=== PATIENT | male | born 1945 | race Caucasian/White ===

== ENCOUNTER 2019-12-01 08:24 | Outpatient (CLI) | payer MEDICARE, SELFPAY ==
--- NOTE | ~2019-12-01 | CT_ITS ---
EXAMINATION: CT UE LT wo con DATE: 12/01/2019 09:18 INDICATION: Left upper arm mass. TECHNIQUE: Computed tomography (CT) of the left humerus was performed without intravenous contrast. A utomated exposure control and iterative reconstruction technique were employed. The dose-length produ ct was 2186.02 mGy-cm. COMPARISON: None FINDINGS: Bone alignment is normal. No fracture. 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 The musculature is normal. There is no abnorma l mass. IMPRESSION: 1. No abnormal mass. Reviewed, dictated and finalized at location A. IMPRESSION: 1. No abnormal mass.
== END 2019-12-01 08:25 | disposition home or self-care (01) ==
LOC: CHSIMG 08:32
PROVIDERS: PCP Family Medicine; Visit Provider Family Medicine
DX: M62.89 Other specified disorders of muscle (principal)
CPT/HCPCS: 73200

== ENCOUNTER 2024-01-21 06:27 | Emergency (ER) | payer MEDICARE, SELFPAY ==
[2024-01-21 06:36] VITALS: BP 130/67; PULSE 72; RESP 18; TEMP 36.9; O2SAT 95
--- NOTE | 2024-01-21 06:43 | ED.EPISTAXIS ---
HPI - Epistaxis General Chief complaint: Epistaxis Stated complaint: Nose Bleed Source: patient Mode of arrival: ambulatory Limitations: no limitations History of Present Illness HPI Narrative: patient is a 78-year-old male with a left nose bleed and he is on Coumadin. He has been having a bleeding problem for the last few hours. MD complaint: epistaxis Location: left nostril Onset (ago): hour(s) (3) Duration: constant Context: history of previous and warfarin use Associated symptoms: sinus pain Treatment prior to arrival: nose pinching, head tilted back, head leaned forward, stuffed nose with tissue and nasal clamp Related Data Home Medications Medication Instructions Recorded Confirmed amlodipine 5 mg tablet 5 mg PO DAILY 01/21/24 01/21/24 atorvastatin 40 mg tablet 40 mg PO DAILY 01/21/24 01/21/24 warfarin 1 mg tablet 1 mg PO DAILY 01/21/24 01/21/24 Allergies Allergy/AdvReac Type Severity Reaction Status Date / Time Penicillins Allergy Anaphylactic Verified 01/21/24 06:33 Shock Review of Systems Review of Systems: All systems reviewed & are unremarkable except as noted in HPI and below Constitutional: Constitutional: Reports no additional constitutional complaints Eyes: Eyes: Reports no additional eye complaints ENT: Reports system reviewed and no additional complaints, except as documented Cardiovascular: Cardiovascular: Reports no additional cardiovascular complaints Respiratory: Respiratory: Reports no additional respiratory complaints Gastrointestinal: Gastrointestinal: Reports no additional gastrointestinal complaints Genitourinary: Genitourinary: Reports no additional male genitourinary complaints Musculoskeletal: Musculoskeletal: Reports no additional musculoskeletal complaints Integumentary/Breasts: Skin/Breast: Reports system reviewed and no additional complaints, except as docu Neurologic: Reports system reviewed and no additional complaints, except as documented Psychiatric: Psychiatric: Reports no additional psychiatric complaints Endocrine: Endocrine: Reports no additional endocrine complaints Hematologic/Lymphatic: Hematologic/Lymphatic: Reports no additional hematologic/lymphatic complaints Allergic/Immunologic: Allergic/Immunologic: Reports no additional allergic/immunologic complaints Exam Const: General: healthy appearing Nutritional Appearance: well nourished Orientation/consciousness: patient oriented x3 HENMT: Head: normal to inspection Ears: external ears normal Face/Nose/Sinus: Normal external nose present Other: Left nare is bleeding briskly with bright red blood and appears to be coming from the anterior midline wall; we blew out a blood clot and placed a rhino rocket Eyes: Conjunctivae: conjunctivae normal Pupils: Equal, round and reactive pupils present EOM: EOMs intact bilaterally Neck: Neck: normal visual inspection Chest: Chest palpation & inspection: normal inspection of the chest Resp: Effort & Inspection: normal respiratory effort and not labored Auscultation: clear to auscultation bilaterally Cardio: Rate: regular rate Rhythm: regular rhythm Heart sounds: no murmurs GI: Inspection: non-distended GI Palp: Yes Soft to palpation and No Tenderness to palpation present (GI) Auscultation: normal bowel sounds : General: Yes bladder normal to palpation Back/Spine/Pelvis: Back: no CVA tenderness Skin: General skin exam: normal color Rashes: no rashes Wounds: no wounds Neuro: General: patient oriented x3 Cranial nerves: Yes Nystagmus not present Speech: normal speech Extrem: General: normal to inspection Psych: Mental Status: mental status grossly normal Affect: normal affect Attitude: cooperative Course Vital Signs Vital signs: Vital Signs Temperature 36.9 C 01/21/24 06:36 Pulse Rate 72 01/21/24 06:36 Respiratory Rate 18 01/21/24 06:36 Blood Pressure 130/67 01/21/24 06:36 Pulse Oximetry 95 01/21/24
[2024-01-21 06:48] LABS: Basophils Absolute Auto 0.07 K/mm3 (0.00-0.10); Basophils Percent Auto 0.9 % (0.0-1.0); Eosinophils Absolute Auto 0.15 K/mm3 (0.02-0.50); Eosinophils Percent Auto 1.9 % (1.0-6.0); Hematocrit 47.7 % (37.0-46.0); Immature Granulocyte Absolute 0.03 K/mm3 (0.00-0.00); Immature Granulocyte Percent A 0.4 % (0.0-0.0); Lymphocytes Absolute Auto 1.31 K/mm3 (1.10-4.50); Lymphocytes Percent Auto 16.3 % (18.0-42.0); Mean Corpuscular HGB Conc 33.5 g/dL (32-36); Mean Corpuscular Hemoglobin 30.1 pg (27.0-31.0); Mean Corpuscular Volume 89.7 fL (78.0-102.0); Mean Platelet Volume 9.9 fl (8.7-11.0); Monocytes Absolute Auto 0.79 K/mm3 (0.10-0.90); Monocytes Percent Auto 9.8 % (2.0-11.0); Neutrophils Absolute Auto 5.69 K/mm3 (1.70-7.20); Neutrophils Percent Auto 70.7 % (50.0-70.0); Platelet Count Result 194 K/mm3 (150-420); Red Blood Count 5.32 M/mm3 (4.70-6.10)
[2024-01-21 07:02] LABS: INR 2.7; Partial Thromboplastin Time 36.9 Sec (23.9-30.70); Prothrombin Time 27.5 Seconds (9.50-12.1)
--- NOTE | 2024-01-21 07:11 | PC.NURSE ---
DR Garber NOTIFIED THAT L NARE BLEEDING AROUND RHINO-ROCKET. MORE AIR ADDED, NO FURTHER NASAL BLEEDING SEEN AT THIS TIME.
== END 2024-01-21 07:50 | disposition home or self-care (01) ==
LOC: CHSED 07:18
PROVIDERS: Emergency Provider Emergency Medicine; PCP Family Medicine
DX: R04.0 Epistaxis (principal); Z79.01 Long term (current) use of anticoagulants
CPT/HCPCS: 30901; 36415; 85025; 85610; 85730; 99283

== ENCOUNTER 2025-01-22 19:55 | Outpatient (CLI) | payer MEDICARE, SELFPAY ==
--- OUTSIDE RECORDS SUMMARY | 2025-01-22 19:59 | XMS_ITS | Clinical Summary ---
Author Organization [facility] Address [address] [place] [address] Care Team Providers Care Vp Strategic Partnerships Name Role Phone Alfred Cuadra MD Primary Care Provider Sandor Peralta MD Unavailable [phone] Kiran Vega MD Unavailable Allergies Active Allergy Reactions Criticality Noted Date Comments Penicillins Unknown 12/19/2021 Pollen Extract Eyes Water & Itch 01/13/2020 Medications aspirin 81 MG chewable tablet Chew 1 tablet (81 mg total) by mouth daily. 4 Active atorvastatin 40 MG tablet Take 1 tablet (40 mg total) by mouth daily. 1 9 Active nitroglycerin (NITROSTAT) 0.[address] 1 tablet (0.4 mg total) under the tongue every 5 (five) minutes as needed for Chest Pain. 25 tablet 1 3 Active warfarin (COUMADIN) 5 MG tablet Take 1 tablet (5 mg total) by mouth daily. 3 Active spironolactone (ALDACTONE) 25 MG tablet Take 1 tablet (25 mg total) by mouth daily. 90 tablet 3 5 Active amLODIPine (NORVASC) 5 MG tablet TAKE 1 TABLET (5 MG TOTAL) BY MOUTH DAILY. 90 tablet 2 5 Active amLODIPine (NORVASC) 5 MG tablet Take 1 tablet (5 mg total) by mouth daily. 90 tablet 2 4 01/21/20 25 Discontinued Active Problems Problem Noted Date Diagnosed Date S/P ablation of atrial flutter 12/07/2023 AVB (atrioventricular block) 10/21/2023 Nonrheumatic aortic valve stenosis 04/13/2023 Lumbar radiculopathy 03/14/2023 Overview (03/14/2023): Added automatically from request for surgery [id number] Cardiac pacemaker 06/19/2019 Overview (06/19/2019): [facility]ta assurity mri 2272 - [id number] Dc-pm Mar 05, 2019 [facility]ta tendril sts 2088tc-52 - [id number] At lead Mar 05, 2019 [facility] balta tendril sts 2088tc - 58 - [id number] Vent lead Feb Atrial flutter ([facility]) 01/28/2019 Bradycardia 01/28/2019 Warfarin anticoagulation 01/21/2019 S/P CABG (coronary artery bypass graft) 01/15/20 CAD (coronary artery disease) 12/12/2017 Sleep apnea 12/12/2017 Essential hypertension 01/03/2017 Hyperlipidemia 01/03/2017 Heart palpitations 01/03/2017 VT (ventricular tachycardia) ([facility]) Resolved Problems Problem Noted Date Diagnosed Date Resolved Date Preop cardiovascular exam 07/09/2020 Encounters Date Type Department Care Team Description 01/07/2025 1:30 PM CDT Office Visit [facility] [place] [address] Kiran Vega MD Heart Problem 01/07/2025 1:06 PM CDT - 01/07/2025 11:59 PM CDT Hospital Encounter [facility] [place] [address] Kiran Vega MD Discharge Disposition: Home or Self Care (Routine Discharge) 01/07[facility]2025 [facility] [address] [place] [address] Kiran Vega MD Schedule Test 01/07/2025 Travel 01/06/2025 [facility] [address] [place] [address] Kiran Vega MD Appointment Reminder 01/06/2025 Telephone [facility] [address] [place] [address] Kiran Vega MD Results 01/05/2025 Travel 01/04/2025 9:41 AM CDT - 01/04/2025 11:59 PM CDT Hospital Encounter [place] [address] [facility] [place] [address] Kiran Vega MD Discharge Disposition: Home or Self Care (Routine Discharge) 01/04/2025 Travel 01/03/2025 Orders Only [facility] [address] [place] [address] Kiran Vega MD 12/22/2024 Telephone [facility] [address] [place] [address] Sandor Peralta MD Schedule Test 12/20/2024 1:45 PM CDT Office Visit [facility] [address] [place] [address] Sandor Peralta MD Follow Up 12/20/2024 1:15 PM CDT Allied Health/Nurse Visit [facility] [address] [place] [address] Sandor Peralta MD In Clinic Device Check 12/20/2024 Travel 12/16/2024 Telephone [facility] [address] [facility] [place] [address] Kiran Vega MD Appointment Reminder 12/10/2024 Orders Only [facility] [address] [place] [address] Kiran Vega MD 12/10/2024 Orders Only [facility] [address] [place] [address] Kiran Vega MD 11/01/2024 Telephone [facility] [address] [place] [facility] [address] Kiran Vega MD Refill Request from Last 3 Months Immunizations Immunization Administration Dates Next Due Influenza Adult (Generic) 07/09/2021 Pneumococcal (Prevnar 13) 09/22/2016,08/05/2016 Family History Medical History Relation Comments Coronary artery disease Father Heart Attack Father Relation Status Comments Father (Age 61) Maternal Grandfather Maternal Grandmother Mother Paternal Grandfather Paternal Grandmother Social History Tobacco Use Types Packs/Day Years Used Date Smoking Tobacco: Former Cigarettes Q uit: 2012 Smokeless Tobacco: Never Tobacco Cessation:Counseling Given: Not Answered Alcohol Use Standard Drinks/Week Comments Yes 3.3 (1 standard drink = 0.6 oz p ure alcohol) 6 pack a month PHQ-2 Answer Date Recorded PHQ-2 Score - If the patient scores above 3, please move on to questions 3-9 0 12/06/2021 Sex and Gender Information Value Date Recorded Sex Assigned at Male 01/05/2025 7:29 AM CDT Legal Sex Male 1:42 AM CDT Gender Identity Not on file Sexual Orientation Not on file Occupation Industry Job Start Date Job End Date Retired. Not on file Not on file Not on file Last Filed Vital Signs Vital Sign Reading Time Taken Comments Blood Pressure 131/73 01/07/2025 1:28 PM CDT Pulse 79 01/07/2025 1:28 PM CDT Temperature 36.3 C (97.4 F) 04/04/2023 1:22 PM CDT Respiratory Rate 20 01/07/2025 1:28 PM CDT Oxygen Saturation 97% 01/07/2025 1:28 PM CDT Inhaled Oxygen Concentration - - Weight 113.7 kg (250 lb 9.6 oz) 01/07/2025 1:28 PM CDT Height 182.9 cm (6') 01/07/2025 1:28 PM CDT Body Mass Index 33.99 01/07/2025 1:28 PM CDT Plan of Treatment Upcoming Encounters Date Type Department Care Team (Latest Contact Info) Description 02/11/2025 7:30 AM CDT Appointment [facility] [facility] [place] [address] Kiran Vega MD [address] [place] [address] 02/11/2025 8:15 AM CDT Appointment [facility] [address] [place] [address] [place] [address] Kiran Vega MD [address] [place] [address] 02/11/2025 8:30 AM CDT Appointment [facility] [address] [place] [address] [place] [address] Kiran Vega MD [address] [place] [address] [place] [address] [address] [place] [address] 02/11/2025 9:45 AM CDT Appointment [facility] [address] [place], [place] [address] [address] Kiran Vega MD [address] [place] [address] 03/23/2025 2:30 AM CDT Allied Health/Nurse Visit [facility] [address] [place] [address] Sandor Peralta MD [address] [place] [address] 12/28/2025 1:00 PM CDT Appointment [facility] [address] [place], [place] [address] [address] Kiran Vega MD [address] [place] [address] 01/06/2026 10:00 AM CDT Appointment [facility] [address] [place] [address] Kiran Vega MD [address] [place] [address] 01/06/2026 11:00 AM CDT Appointment [facility] [address] [place] [address] Kiran Vega MD [address] [place] [address] 01/16/2026 11:00 AM CDT [facility] [address] [place] [address] Kiran Vega MD [address] [place] [address] 01/20/2026 10:[address] [place] [address] Kiran Vega MD [address] [place] [address] Health Maintenance Due Date Last Done Comments ASCVD Statin 1945 Hepatitis C 1964 DTaP, Tdap and Td Vaccines ( 1 - Tdap) 1965 Zoster Vaccines (1 of 2) 1996 Annual Medicare Wellness Visit 2011 ASCVD LDL 05/12/2016 05/12/2015 Pneumococcal Vaccine: 50+ Years (2 of 2 - PPSV23) 11/17/2016 09/22/2016, 08/05/2016 RSV Immunization or 60+ Years (1 - 1-dose 75+ series) 2021 COVID-19 Vaccine (2023-2 5 season) 2024 Meningococcal B Vaccine Aged Out No l onger eligible based on patient's age to complete this topic Meningococcal Vaccine Aged Out No libia bulmaro eligible based on patient's age to complete this topic RSV Immunizations Under 20 Months Aged Out No longer eligible b ased on patient's age to complete this topic Medical Devices Implanted Type Area [employer] Lead Device Identifier Shelf Expiration Date Model / Serial / Lot [facility] Rv Dc Ppm Lead- 9 Implanted:Qty : 1 on 03/05/2019 by Sandor Peralta MD Lead Implant [facility] [employer] [facility] - DIV [facility]TA 01/19/20228TC-58 / [id number] / [facility] Ra Lead- 9 Implanted:Qty : 1 on 03/05/2019 by Sandor Peralta MD Lead Implant [facility] [facility] - DIV [facility] 01/19/20228TC-52 / [id number] / [facility]ta Dc Pacemaker-02/20 Implanted:Qty : 1 on 03/05/2019 by Sandor Peralta MD Pacemaker [facility] DIV [facility] 08/21/2020 [id number] / [id number] / Procedures Procedure Name Priority Date/Time Associated Diagnosis Comments ECG 12-LEAD Routine 01/07/2025 1:17 PM CDT Essential hypertension USV AORTA ILIAC IVC DUPLEX COMP Routine 01/04/2025 11:44 AM CDT Abdominal aortic aneurysm (AAA) Infrarenal abdominal aortic aneurysm (AAA) without rupture USE ECHOCARDIOGRAM W CON Routine 01/04/2025 11:43 AM CDT Nonrheumatic aortic valve stenosis Ascending aorta enlargement LIPID PANEL Routine 05/12/2015 12:00 AM CDT from Last 3 Months or Most Recently Relevant to Health Maintenance Results * ECG 12 lead (HOSPITAL PERFORMED ONLY) (01/07/2025 1:17 PM CDT) 01/07/2025 1:17 PM CDT Narrative [facility] - 01/07/2025 10:05 PM CDT [address] [place] [address] Test Date: 2025-01-07 Pat Name: RICKI MANE Department: 3 Room: Gender: Male Legal File Clerk: : 1945 Requested By: KIRAN VEGA Order Number: [id number] [place] MD: Kiran Vega Measurements Intervals [place] Rate: 69 P: 0 GA: 0 QRS: 96 QRSD: 162 T: -79 QT: 424 QTc: 457 Interpretive Statements ELECTRONIC VENTRICULAR PACEMAKER ABNORMAL RHYTHM ECG Procedure Note Kiran Vega MD - 01/07/[address] [place] [address] Test Date: 2025-01-07 Pat Name: RICKI MANE Department: 3 Room: Gender: Male Legal File Clerk: : 1945 Requested By: KIRAN VEGA Order Number: [id number] [place] MD: Kiran Vega Measurements Intervals [place] Rate: 69 P: 0 GA: 0 QRS: 96 QRSD: 162 T: -79 QT: 424 QTc: 457 Interpretive Statements ELECTRONIC VENTRICULAR PACEMAKER ABNORMAL RHYTHM ECG us Kiran Vega MD ECG ORDERABLES Final Result [facility] * USV AORTA ILIAC IVC DUPLEX COMP (01/04/2025 11:44 AM CDT) Anatomical Region Laterality Modality NA Ultrasound 01/04/2025 9:57 AM CDT Narrative 01/04/2025 5:39 PM CDT Outreach Aortic Scan Pat.Name: Ricki Mane Pat.ID: [id number] .Date: 01/04/2025 Refer.MD: Maximiliano, [facility] Exam Time: 9:57:00 AM Study Type:OUTREACH Aortic Scan Height: 72 in Age: 11 1945,79Y Sex: M Sonogrphr: Am Pat. Stat.:Outpatient Reason for Study:Abdominal aortic aneurysm (AAA), Infrarenal abdominal aortic aneurysm (AAA) without rupture Procedures: Study performed at [place], [place] and interpreted by [facility]. ++++++++++++++++++++++++++++++++++++ SUMMARY: ++++++++++++++++++++++++++++++++++++ AO: No hemodynamically significant stenosis is noted in the abdominal aorta. AO: An abdominal aortic aneurysm noted in the suprarenal aorta measuring 3.2 cm. R Iliac: Ectasia of the proximal common iliac artery noted measuring 1.6 cm. L Iliac: Ectasia of the proximal common iliac artery noted measuring 1.5 cm. ++++++++++++++++++++++++++++++++++++ FINDINGS: ++++++++++++++++++++++++++++++++++++ AO: No hemodynamically significant stenosis is noted in the abdominal aorta. An abdominal aortic aneurysm noted in the suprarenal aorta measuring 3.2 cm. R Iliac: Ectasia of the proximal common iliac artery noted measuring 1.6 cm. L Iliac: Ectasia of the proximal common iliac artery noted measuring 1.5 cm. ++++++++++++++++++++++++++++++++++++ MEASUREMENTS: ++++++++++++++++++++++++++++++++++++ DOPPLER Supra AO Supra AO PSV 47 cm/s Supra AO Dim 2 2.7 cm Supra AO Dim 1 3.2 cm Juxta AO Juxta AO PSV 65 cm/s Juxta AO Dim 2 2.4 cm Juxta AO Dim 1 2.7 cm Infra AO Infra AO PSV 59 cm/s Infra AO Dim 2 2.2 cm Infra AO Dim 1 2.4 cm Rt Prox Common Iliac Common Iliac PS 100 cm/s Common Iliac Di 1.6 cm Common Iliac Di 1.4 cm Lt Prox Common Iliac Common Iliac PS 145 cm/s Common Iliac Di 1.5 cm Common Iliac Di 1.4 cm <Electronic Signature> 01/04/2025 05:39 PM Kiran Vega M.D. Procedure Note Kiran Vega MD - 01/04/2025 Outreach Aortic Scan Pat.Name: Ricki Mane Pat.ID: [id number] .Date: 01/04/2025 [facility]: 9:57:00 AM Study Type:OUTREACH Aortic Scan Height: 72 in Age: 11 1945,79Y Sex: M Sonogrphr: Am Pat. Stat.:Outpatient Reason for Study:Abdominal aortic aneurysm (AAA), Infrarenal abdominal aortic aneurysm (AAA) without rupture Procedures: Study performed at [place], [place] and interpreted by [facility]. ++++++++++++++++++++++++++++++++++++ SUMMARY: ++++++++++++++++++++++++++++++++++++ AO: No hemodynamically significant stenosis is noted in the abdominal aorta. AO: An abdominal aortic aneurysm noted in the suprarenal aorta measuring 3.2 cm. R Iliac: Ectasia of the proximal common iliac artery noted measuring 1.6 cm. L Iliac: Ectasia of the proximal common iliac artery noted measuring 1.5 cm. ++++++++++++++++++++++++++++++++++++ FINDINGS: ++++++++++++++++++++++++++++++++++++ AO: No hemodynamically significant stenosis is noted in the abdominal aorta. An abdominal aortic aneurysm noted in the suprarenal aorta measuring 3.2 cm. R Iliac: Ectasia of the proximal common iliac artery noted measuring 1.6 cm. L Iliac: Ectasia of the proximal common iliac artery noted measuring 1.5 cm. ++++++++++++++++++++++++++++++++++++ MEASUREMENTS: ++++++++++++++++++++++++++++++++++++ DOPPLER Supra AO Supra AO PSV 47 cm/s Supra AO Dim 2 2.7 cm Supra AO Dim 1 3.2 cm Juxta AO Juxta AO PSV 65 cm/s Juxta AO Dim 2 2.4 cm Juxta AO Dim 1 2.7 cm Infra AO Infra AO PSV 59 cm/s Infra AO Dim 2 2.2 cm Infra AO Dim 1 2.4 cm Rt Prox Common Iliac Common Iliac PS 100 cm/s Common Iliac Di 1.6 cm Common Iliac Di 1.4 cm Lt Prox Common Iliac Common Iliac PS 145 cm/s Common Iliac Di 1.5 cm Common Iliac Di 1.4 cm <Electronic Signature> 01/04/2025 05:39 PM Kiran Vega M.D. us Kiran Vega MD VASC Final Result * USE ECHOCARDIOGRAM W CON (01/04/2025 11:43 AM CDT) Anatomical Region Laterality Modality NA Ultrasound 01/04/2025 10:0 7 AM CDT Narrative 01/05/2025 8:15 PM CDT Echocardiography Report Pat.Name: Ricki Mane Pat.ID: [id number] .Date: 01/04/2025 Refer.MD: Maximiliano, [facility] Exam Time: 10:07:00 AM Study Type:[facility] Height: 72 in Weight: 255 lb BSA: 2.36 m2 Age: 11 1945,79Y Sex: M Sonogrphr: Am Pat. Stat.:Outpatient Reason for Study:Nonrheumatic aortic valve stenosis, Proximal ascending aortic enlargement Procedures: Study performed at [facility], [place], [place] and interpreted by [facility]. 2D, M-mode, Doppler, Color Flow, Myocardial contrast was used to enhance endocardial definition. ++++++++++++++++++++++++++++++++++++ SUMMARY: ++++++++++++++++++++++++++++++++++++ The left ventricular size is normal. Estimated left ventricular ejection fraction is 50%. The right ventricular size is mildly enlarged. The right ventricle not adequately visualized in all views. No evidence of pericardial effusion. Inferior vena cava shows >50% collapse with respiration consistent with normal right atrial pressure. Mild to moderate aortic valve stenosis. Trace aortic regurgitation. Moderate calcification of aortic valve leaflets. Dimensionless index of .29. ++++++++++++++++++++++++++++++++++++ FINDINGS: ++++++++++++++++++++++++++++++++++++ LV: The left ventricular size is normal. The left ventricular systolic function is adequate. Estimated left ventricular ejection fraction is 50%. There is no left ventricular hypertrophy. The average E/e' is <14. Left ventricular diastolic function is abnormal. RV: The right ventricular size is mildly enlarged. The right ventricle not adequately visualized in all views. A pacemaker wire is visualized in the right ventricle. LA: The left atrial size is normal. RA: Right atrial size is possibly enlarged. A pacemaker wire is visualized in the right atrium. The right atrium was not well visualized in all views. ÁNGEL: No evidence of pericardial effusion. AO: Aorta not well visualized. PA: Unable to reliably quantitate pulmonary systolic pressure. SVn: Inferior vena cava is normal. Inferior vena cava shows >50% collapse with respiration consistent with normal right atrial pressure. AV: Mild to moderate aortic valve stenosis. The peak velocity across the aortic valve measures 3.0m/sec with a peak gradient of 35mmHg and a mean gradient of 23mmHg. The calculated aortic valve area is 1.0cm2. Trace aortic regurgitation. Moderate calcification of aortic valve leaflets. Dimensionless index of .29. MV: Structurally normal mitral valve. No evidence of significant mitral regurgitation. PV: Pulmonic valve not well visualized. <Electronic Signature> 01/05/2025 08:15 PM Kiran Vega M.D. Procedure Note Kiran Vega MD - 01/06/2025 Echocardiography Report Pat.Name: LakshmiRicki Pat.ID: [id number] .Date: 01/04/2025 Refer.MD: Maximiliano, [facility] Exam Time: 10:07:00 AM Study Type:[facility] Height: 72 in Weight: 255 lb BSA: 2.36 m2 Age: 11 1945,79Y Sex: M Sonogrphr: Devora Santiago. Stat.:Outpatient Reason for Study:Nonrheumatic aortic valve stenosis, Proximal ascending aortic enlargement Procedures: Study performed at [place], [place] and interpreted by [facility]. 2D, M-mode, Doppler, Color Flow, Myocardial contrast was used to enhance endocardial definition. ++++++++++++++++++++++++++++++++++++ SUMMARY: ++++++++++++++++++++++++++++++++++++ The left ventricular size is normal. Estimated left ventricular ejection fraction is 50%. The right ventricular size is mildly enlarged. The right ventricle not adequately visualized in all views. No evidence of pericardial effusion. Inferior vena cava shows >50% collapse with respiration consistent with normal right atrial pressure. Mild to moderate aortic valve stenosis. Trace aortic regurgitation. Moderate calcification of aortic valve leaflets. Dimensionless index of .29. ++++++++++++++++++++++++++++++++++++ FINDINGS: ++++++++++++++++++++++++++++++++++++ LV: The left ventricular size is normal. The left ventricular systolic function is adequate. Estimated left ventricular ejection fraction is 50%. There is no left ventricular hypertrophy. The average E/e' is <14. Left ventricular diastolic function is abnormal. RV: The right ventricular size is mildly enlarged. The right ventricle not adequately visualized in all views. A pacemaker wire is visualized in the right ventricle. LA: The left atrial size is normal. RA: Right atrial size is possibly enlarged. A pacemaker wire is visualized in the right atrium. The right atrium was not well visualized in all views. ÁNGEL: No evidence of pericardial effusion. AO: Aorta not well visualized. PA: Unable to reliably quantitate pulmonary systolic pressure. SVn: Inferior vena cava is normal. Inferior vena cava shows >50% collapse with respiration consistent with normal right atrial pressure. AV: Mild to moderate aortic valve stenosis. The peak velocity across the aortic valve measures 3.0m/sec with a peak gradient of 35mmHg and a mean gradient of 23mmHg. The calculated aortic valve area is 1.0cm2. Trace aortic regurgitation. Moderate calcification of aortic valve leaflets. Dimensionless index of .29. MV: Structurally normal mitral valve. No evidence of significant mitral regurgitation. PV: Pulmonic valve not well visualized. <Electronic Signature> 01/05/2025 08:15 PM Kiran Vega M.D. Kiran Vega MD ECHO Final Result * LIPID PANEL (05/12/2015 12:00 AM CDT) TRIGLYCERIDES 164 0 - 150 mg/dl MEDINFORMATIX TO EPIC CONVERSION CHOLESTEROL 147 0 - 200 mg/dl MEDINFORMATIX TO EPIC CONVERSION HDL 40 40 - 59 mg/dl MEDINFORMATIX TO EPIC CONVERSION LDL CONVERSION 74 0 - 100 mg/dl MEDINFORMATIX TO EPIC CONVERSION CHOL/HDL RATIO 3.7 <4.0 (Calc) MEDINFORMATIX TO EPIC CONVERSION LDL/HDL 1.9 <3.0 Calc MEDINFORMA TIX TO EPIC CONVERSION 05/12/2015 05/12/2015 Narrative MEDINFORMATIX TO EPIC CONVERSION - 05/15/2015 3:23 PM CDT Reviewed by VIKKI May 15 2015 3:28:14:000PM us Generic Conversion Md [facility] Final R esult MEDINFORMATIX TO EPIC CONVERSION from Last 3 Months or Most Recently Relevant to Health Maintenance Insurance MEDICARE [facility] MEDICARE Advance Directives * Full Code (Latest Code Status on File) Date Activated Date Inactivated Comments 06/30/2019 4:13 PM 06/30/2019 8:11 PM * Full Code Date Activated Date Inactivated Comments 03/05/2019 6:21 PM 03/06/2019 2:40 PM Care Teams Vp [employer] Partnerships Relationship Specialty Start Date End Date Alfred Cuadra MD [address] [place] [id number] PCP - General FAMILY PRACTICE 01/22/19 Sandor Peralta MD [address] [place] [address] [employer] Operator CLINICAL CARDIAC ELECTROPHYSIOLOGY 06/14/19 Kiran Vega MD [address] [place] [address] Consulting Physician CARDIOVASCULAR DISEASE 01/15/24
--- OUTSIDE RECORDS SUMMARY | 2025-01-22 19:59 | XMS_ITS | Encounter Summary ---
Author Organization [facility] Address [facility] [place] [address] Care Team Providers Care Cartographic Engineer Name Role Phone Ayad Cronin MD Unavailable [phone] Kishore Gunter MD Unavailable Alfred Cuadra MD Primary Care Provider [phone] Sandor Peralta MD Unavailable [phone] Silvina Cox MD Unavailable Encounter Details Date Type Department Care Team (Late st Contact Info) Description 06/01/2015 Abstract [facility] [address] [place] [address] Ayad Cronin MD [address] [place] [address] Social History Tobacco Use Types Packs/Day Years Used Date Smoking Tobacco: Former Alcohol Use Standard Drinks/Week Comments No 0 (1 standard drink = 0.6 oz pur e alcohol) Sex and Gender Information Value Date Recorded Sex Assigned at Male 01/05/2025 7:29 AM CDT Legal Sex Male 1:42 AM CDT Gender Identity Not on file Sexual Orientation Not on file Occupation Industry Job Start Date Job End Date Retired. Not on file Not on file Not on file documented as of this encounter Plan of Treatment Upcoming Encounters Date Type Department Care Team (Latest Contact Info) Description 02/11/2025 7:30 AM CDT Appointment [facility] [address] [place], [place] [address] [address] Silvina Cox MD [address] [place] [address] 02/11/2025 8:15 AM CDT Appointment [facility] [address] [place], [place] [address] [address] Silvina Cox MD [address] [place] [address] 02/11/2025 8:30 AM CDT Appointment [facility] [address] [place], [place] [address] [address] Silvina Cox MD [address] [place] [address] [place] [address] [place] [address] 02/11/2025 9:45 AM CDT [address]ointment [address] [place] [address] Silvina Cox MD [address] [place] [address] 03/23/2025 2:30 AM CDT Allied Health/Nurse Visit [facility] [address] [place] [address] [phone] Sandor Peralta MD [address] [place] [address] 12/28/2025 1:00 PM CDT Appointment [facility] [address] [place], [place] [address] [address] Silvina Cox MD [address] [place] [address] 01/06/2026 10:00 AM CDT Appointment [facility] [address] [place] [address] Silvina Cox MD [address] [place] [address] 01/06/2026 11:00 AM CDT Appointment [facility] [address] [place] [address] Silvina Cox MD [address] [place] [address] 01/16/2026 11:00 AM CDT [facility] [id number] [facility] [place] [phone] Silvina Cox MD [address] [place] [address] 01/20/2026 10:[address] [facility] [address] [place] [address] [place] [address] Silvina Cox MD [address] [place] [address] documented as of this encounter Visit Diagnoses Not on filedocumented in this encounter Care Teams Cartographic Engineer Relationship Specialty Start Date End Date Alfred Cuadra MD [address] [place] [phone] PCP - General FAMILY PRACTICE 01/22/19 Ayad Cronin MD [address] [place] [phone] [place] [employer] Skidder Operator CARDIOVASCULAR DISEASE 01/01/17 01/14/24 Kishore Gunter MD [address] [place] [phone] [place] [employer] Operator CLINICAL CARDIAC ELECTROPHYSIOLOGY 01/19/19 12/08/22 Sandor Peralta MD [address] [place] [address] [employer] [employer] Operator CLINICAL CARDIAC ELECTROPHYSIOLOGY 06/14/19 Silvina Cox MD [address] [place] [address] Consulting Physician CARDIOVASCULAR DISEASE 01/15/24 documented as of this encounter
--- OUTSIDE RECORDS SUMMARY | 2025-01-22 19:59 | XMS_ITS | Encounter Summary ---
Author Organization [facility] Address [facility] [place] [address] Care Team Providers Care Underground Heavy Equipment Operator Name Role Phone Ayad Cronin MD Unavailable [phone] Kishore Gunter MD Unavailable Alfred Cuadra MD Primary Care Provider Sandor Peralta MD Unavailable [phone] Silvina Cox MD Unavailable Encounter Details Date Type Department Care Team (Late st Contact Info) Description 06/17/2019 Abstract [facility] [address] [place] [address] Ayad Cronin MD [address] [place] [address] Social History Tobacco Use Types Packs/Day Years Used Date Smoking Tobacco: Former Cigarettes Q uit: 2012 Smokeless Tobacco: Never Alcohol Use Standard Drinks/Week Comments No 0 [...] Info) Description 02/11/2025 7:30 AM CDT Appointment [facility] [address] [place], [place] [address] [address] Silvina Cox MD [address] [place] [address] 02/11/2025 8:15 AM CDT Appointment [facility] [address] [place], [place] [address] [address] Silvina Cox MD [address] [place] [address] 02/11/2025 8:30 AM CDT Appointment [facility] [address] [place], [place] [address] [address] Silvina Cox MD [address] [place] [address] [place] [address] [place] [address] 02/11/2025 9:45 AM CDT [address]ointment [address] [place] [address] Silvina Cox MD [address] [place] [address] 03/23/2025 2:30 AM CDT Allied Health/Nurse Visit [facility] [address] [place] [address] Sandor Peralta MD [address] [place] [address] 12/28/2025 1:00 PM CDT Appointment [facility] [place] [address] Silvina Cox MD [address] [place] [address] 01/06/2026 10:00 AM CDT Appointment [facility] Non Invasive [facility] - [facility] [address] [place] [address] Silvina Cox MD [address] [place] [address] 01/06/2026 11:00 AM CDT Appointment [facility] Vascular [facility] - [facility] [address] [place] [address] Silvina Cox MD [address] [place] [address] 01/16/2026 11:00 AM CDT [facility] [address] [place] [address] [phone] Silvina Cox MD [address] [place] [address] 01/20/2026 10:[address] [facility] [place] [address] Silvina Cox MD [address] [place] [address] documented as of this encounter Procedures Procedure Name Priority Date/Time Associated Diagnosis Comments PROTHROMBIN TIME, VENOUS Routine 06/16/2019 Essential hypertension Coronary artery disease involving [place] coronary artery of [place] heart without angina pectoris S/P CABG (coronary artery bypass graft) Atrial flutter, unspecified type Warfarin anticoagulation BASIC METABOLIC PANEL Routine 06/16/2019 Essential hypertension Coronary artery disease involving [place] coronary artery of [place] heart without angina pectoris S/P CABG (coronary artery bypass graft) Atrial flutter, unspecified type Warfarin anticoagulation CBC W/DIFF AUTOMATED Routine 06/16/2019 Essential hypertension Coronary artery disease involving [place] coronary artery of [place] heart without angina pectoris S/P CABG (coronary artery bypass graft) Atrial flutter, unspecified type Warfarin anticoagulation MAGNESIUM Routine 06/16/2019 Essential hypertension Coronary artery disease involving [place] coronary artery of [place] heart without angina pectoris S/P CABG (coronary artery bypass graft) Atrial flutter, unspecified type Warfarin anticoagulation documented in this encounter Results * PROTHROMBIN TIME, VENOUS (06/16/2019) PROTIME WHOLE BLOOD 18.7 INR WHOLE BLOOD 1.70 06/16/2019 Ayad Cronin MD LABORATORY Final Resul t * MAGNESIUM (06/16/2019) MAGNESIUM 2.1 06/16/2019 us Ayad Cronin MD LABORATORY Final Resul t * BASIC METABOLIC PANEL (06/16/2019) SODIUM S/P/B 141 POTASSIUM S/P/B 4.2 CO2 29 CHLORIDE S/P/B 102 GLUCOSE 96 mg/dL CALCIUM S/P/B 8.7 BUN 11 CREATININE S/P/B 1.1 0.7 - 1.3 06/16/2019 us Ayad Cronin MD LABORATORY Final Resul t * CBC W/DIFF AUTOMATED (06/16/2019) WBC 6.8 RBC 5.2 HGB 15.9 HCT 46.6 MCV 89 MCH 30 MCHC 34 PLT 205 06/16/2019 us Ayad Cronin MD LABORATORY Final Resul t documented in this encounter Visit Diagnoses Diagnosis Heart palpitations Palpitations Warfarin anticoagulation Encounter for long-term (current) use of anticoagulants Essential hypertension Unspecified essential hypertension Coronary artery disease involving [place] coronary artery of [place] heart without angina pectoris S/P CABG (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) documented in this encounter Care Teams Underground Heavy Equipment Operator Relationship Specialty Start Date End Date Alfred Cuadra MD [address] [place] [address] PCP - General FAMILY PRACTICE 01/22/19 Ayad Cronin MD [address] [place] [address] [place] [employer] Machine Operator CARDIOVASCULAR DISEASE 01/01/17 01/14/24 Kishore Gunter MD [address] [place] [phone] [place] [employer] Spring Machine Operator CLINICAL CARDIAC ELECTROPHYSIOLOGY 01/19/19 12/08/22 Sandor Peralta MD [address] [place] [phone] [place] [employer] Spring Machine Operator CLINICAL CARDIAC ELECTROPHYSIOLOGY 06/14/19 Silvina Cox MD [address] [place] [address] Consulting Physician CARDIOVASCULAR DISEASE 01/15/24 documented as of this encounter
--- NOTE | 2025-02-18 09:16 | P.SLEEP_ITS ---
Sleep Study Date of Study: 01/22/25 Ordering Provider: Alfred Cuadra, Interpreting Physician: Fatemeh Verde MD Sleep Study Type: Split Polysomnogram Height: 1.83 m Weight: 113.398 kg Body Mass Index: 33.9 Neck Circumference (inches): 17 [place]: 4 Reason for Sleep Study Known obstructive sleep apnea, used CPAP, needs a new machine Sleep History Ricki Martins is a 79-year-old man who was diagnosed with obstructive sleep apnea over a decade ago. He used a Benjamín CPAP machine, and this was eventually replaced with a NeoChordStation 2. His DME went out of business. He is in need of a new machine and supplies for the device he is using. It is not clear if he used CPAP leading up to the night that he underwent this study. He frequently awakens from sleep feeling short of breath. He does not awaken at night with heartburn, belching or coughing. Using CPAP he does not snore. He does not have difficulty sleeping when he has a cold. He frequently wakes up gasping for breath during the night and frequently has breathing problems at night reported to own by his if he does not use PAP. He rarely sweats excessively at night. He does not notice his heart pounding or beating irregularly at night. He occasionally falls asleep during the day, occasionally falls asleep involuntarily but never while driving. He does not have loss of muscle tone with strong emotion. He does not have daytime difficulties due to excessive sleepiness. He does not feel paralyzed on waking or falling asleep. He does not have vivid dreamlike scenes upon awakening or falling asleep. He does not feel afraid to go to sleep. He rarely has nightmares. On occasion, he recalls his dreams. He frequently has racing thoughts. He does not feel sad or depressed. He occasionally has anxiety. He rarely notices parts of his body jerking. He rarely kicks at night. He frequently has crawling and aching feelings in his legs. He occasionally has leg pain during the night. He does n ot have morning jaw pain. He does not grind his teeth at night. He constantly is bothered by pain during the day. He is not awakened by pain during the night. He constantly wakes up feeling stiff in the morning with sore achy muscles and pain in the neck and spine. He has nightmares and memory problems. His normal bedtime is 1:30 a.m., falling asleep within 2-5 minutes typically waking between 4 and 6 times during the night, long enough to use the bathroom, and these awakenings occur every 2 hours. His normal wake time is between 10:00 a.m. and noon. On weekends, his bedtime is between 3 and 4:00 a.m., his wake time is noon. He occasionally takes naps in the afternoon or evening. A short nap lasting 10-15 minutes may be refreshing. He feels better in the afternoon and evening compared to the morning. Habits: Tobacco : Quit 15 years ago Caffeine : 2-3 cups of coffee daily Alcohol : Occasional, 7 bottles so far this year Recreational substances : none PMFSH Past Medical History Medical History (Updated 02/18/25 @ 09:54 by Fatemeh Verde MD) Anticoagulated on Coumadin Chronic low back pain Renal insufficiency AAA (abdominal aortic aneurysm) CAD (coronary artery disease) Hyperlipidemia Hypertension Obstructive sleep apnea Surgical History Surgical History (Updated 02/18/25 @ 09:27 by Fatemeh Verde MD) Hx of cataract removal with insertion of prosthetic lens bilateral History of back surgery x 3 History of coronary artery bypass graft History of permanent cardiac pacemaker placement Social History Social History (Updated 02/18/25 @ 09:28 by Fatemeh Verde MD) Smoking status: Former smoker Alcohol intake: current Substance use: never Medications Home Medications ?Medication ?Instructions ?Recorded ?Confirmed ?Type amlodipine 5 mg tablet 5 mg PO DAILY 01/21/24 01/21/24 History atorvastatin 40 mg tablet 40 mg PO DAILY 01/21/24 01/21/24 History warfarin 1 mg tablet 1 mg PO DAILY 01/21/24 01/21/24 History Medications: Additional medications on office note 01/03/2025 Aspirin 81 mg a day Spironolactone 25 mg a day Sleep Procedure A full night polysomnogram using the [employer] multi-channel system recorded the standard physiologic parameters including EEG, EOG, submentalis EMG, anterior tibialis EMG, EKG, body position, nasal and oral airflow using nasal pressure sensor and thermistor. Respiratory parameters of chest and abdominal movements were recorded with Respiratory Inductance Plethysmography belts. Oxygen saturation was recorded by pulse oximetry. Video monitoring was also performed. Sleep stages, periodic limb movements, and EEG arousals were scored in 30 second epochs according to the criteria of the AASM Scoring Manual. The Apnea-Hypopnea Index was calculated using CMS guidelines for definition of hypopnea with 4% O2 desaturations while scoring respiratory events. The patient did not take a sleep aid at the start of the study. He use 2 pillows, had 5 bathroom visits during the night. His normal bedtime is between 12 30 midnight and 3:00 a.m. which is consistent with his increased sleep latency which was 35 minutes. The patient met criteria for CPAP after the baseline. The apnea-hypopnea index was 7.2 (pAHI 4%) with desaturation 83%. The AHi using 3% criteria was 16.4. CPAP was started at 5 cm using a medium ResMed Quattro fullface mask and heated humidity, completed the titration a maximum pressure of CPAP 13 cm. Sleep Architecture During the diagnostic portion of the study, the total recording time was 204.0 minutes. The total sleep time was 124.5 minutes. Sleep latency was 35.0 minutes. REM latency was 71.5 minutes. Sleep Efficiency was 61.0%. The patient had 21 awakenings for an awakening index of 10.1. Wake after sleep onset time was 44.5 minutes. The patient spent 25.0 minutes, 20.1% of total sleep time in Stage N1. The patient spent 87.5 minutes, 70.3% in Stage N2. The patient spent no time in Stage N3. The patient spent 12.0 minutes, 9.6% in Stage REM sleep. At 01:35:46 AM the patient was placed on PAP treatment and was titrated at pressures starting at 5 cm using a medium ResMed Quattro fullface mask and heated humidity. CPAP was increased for events, CPAP 7, CPAP 8, CPAP 9; at this point, he met criteria for supplemental oxygen which was added at 1 liter/minute. He had sustained hypoxemia below 88% for greater than 5 minutes. Titration continued, CPAP increased to 11 cm with improvement in saturation in the oxygen was turned off. The patient continue titration with CPAP 12 cm and 13 cm. At CPAP 13 cm, the patient spent 52 minutes in bed, 16 minutes awake, 32.5 minutes in non-REM and 3.5 minutes in REM. Sleep efficiency was 69.2%. The residual apnea-hypopnea index was 0 with the lowest saturation 89%. The patient had REM in the left lateral position at this pressure. Most of his sleep was in the left lateral position. During the treatment portion of the study, the total recording time was 253.2 minutes. The total sleep time was 206.0 minutes. Sleep latency was 10.0 minutes. REM latency was 28.5 minutes. Sleep Efficiency was 81.4%. Wake after Sleep Onset time was 37.5 minutes. The patient spent 12.5 minutes, 6.1% of total sleep time in Stage N1. The patient spent 142.0 minutes, 68.9% in Stage N2. The patient spent no time in Stage N3. The patient spent 51.5 minutes, 25.0% in Stage REM. Respiratory Analysis During the baseline portion of the study, the patient had 10 hypopneas, 5 obstructive apneas, no mixed apneas, and no central apneas for an overall Apnea Hypopnea Index of 7.2 events per hour. The REM Apnea Hypopnea Index was 20.0. The NREM Apnea Hypopnea Index was 6.9. The patient had a Central Apnea Hypopnea Index of 0. There were no Respiratory Effort Related Arousals. The Respiratory Disturbance Index is 13.0 events per hour. There was no evidence of [place]- [place] Respirations. During the treatment portion of the study, the patient had 3 hypopneas, no obstructive apneas, no mixed apneas, and no central apneas for an overall Apnea Hypopnea Index of 0.9 events per hour. The REM Apnea Hypopnea Index was 2.3. The NREM Apnea Hypopnea Index was 0.4. The patient had a Central Apnea Hypopnea Index of 0. There were no Respiratory Effort Related Arousals. The Respiratory Disturbance Index is 2.0 events per hour. There was no evidence of [place]ys-[place]emon Respirations. Arousals During the diagnostic portion of the study, there were a total of 56 arousals for an arousal index of 27.0. There were 20 respiratory arousals for an index of 9.6. There were 12 periodic limb movement arousals for an index of 5.8. There was 1 isolated limb movement arousal for an index of 0.5. There were 21 spontaneous arousals for an index of 10.1. During the treatment portion of the study, there were a total of 51 arousals for an index of 14.9. There were 5 respiratory arousals for an index of 1.5. There were 23 periodic limb movement arousals for an index of 6.7. There was 1 isolated limb movement arousal for an index of 0.3. There were 21 spontaneous arousals for an index of 6.1. Periodic Limb Movements During the diagnostic portion of the study, the patient had 27 isolated limb movements with an index of 13.0. The patient had 181 periodic limb movements with an index of 87.2. The patient had a total of 208 limb movements with a total limb movement index of 100.2. During the treatment portion of the study, the patient had 28 isolated limb movements with an index of 8.2. The patient had 373 periodic limb movements with an index of 108.6. The patient had a total of 401 limb movements with a total limb movement index of 116.8. Oximetry Data During the diagnostic portion of the study, the patient had an average oxygen saturation of 89% in wake with a minimum oxygen saturation of 84% and a maximum oxygen saturation of 95%. The patient had an average oxygen saturation of 86% in sleep with a minimum oxygen saturation of 83% and a maximum oxygen saturation of 93%. The patient had 25 oxygen desaturations resulting in an Oxygen Desaturation Index of 12.0. The patient spent 135.9 minutes, 67.2% of total sleep time with an oxygen saturation less than 88%. During the treatment portion of the study, the patient had an average oxygen saturation of 89.8% in wake with a minimum oxygen saturation of 85% and a maximum oxygen saturation of 94%. The patient had an average oxygen saturation of 89% in sleep with a minimum oxygen saturation of 84% and a maximum oxygen saturation of 93%. The patient had 8 oxygen desaturations resulting in an Oxygen Desaturation Index of 2.3. The patient spent 84.9 minutes, 33.7% of total sleep time with an oxygen saturation less than 88%. Oxygen was added during the titration at 2:55 a.m. while the patient was on CPAP 9 cm. Oxygen remained on until CPAP was at 11 cm in the oxygen was removed. The patient completed the study off of oxygen. Snoring Profile Snoring was continuous and moderate at baseline, was eliminated by the end of the titration. Cardiac Profile During the diagnostic portion of the study, the EKG showed a paced rhythm, average pulse rate was 71.5 bpm, minimum pulse rate was 64 bpm and the maximum pulse rate was 82 bpm. During the treatment portion of the study, the EKG showed a paced rhythm, average pulse rate was not reported by the software, appeared to be paced at 70 bpm. No arrhythmias noted. EEG Profile EEG was unremarkable, no evidence of seizures. Assessment and Plan Assessment and Plan (1) Obstructive sleep apnea: Code(s): G47.33 - Obstructive sleep apnea (adult) (pediatric) Status: Acute Assessment and Plan: This split night sleep study on 02/18/2025 shows an apnea-hypopnea index of 7.2 using the 4% criteria as he is a Medicare patient, desaturation 83% and moderately loud continuous snoring. He was successfully treated using CPAP 13 cm and a medium ResMed Quattro fullface mask with heated humidity. At CPAP 13 cm, the patient spent 52 minutes in bed, 16 minutes awake, 32.5 minutes in non- REM and 3.5 minutes in REM. Sleep efficiency was 69.2%. The residual apnea- hypopnea index was 0 with the lowest saturation 89%. The patient had REM in the left lateral position at this pressure. Most of his sleep was in the left lateral position. The patient should be prescribed this ResMed equipment as well as tubing, filters and reservoir. This should be used with all episodes of sleep. Compliance should be reviewed within 31-90 days of starting therapy for usage greater than 4 hours per night greater than 70% of the nights. The patient should be asked about symptoms such as excessive daytime sleepiness, quality of sleep, decreased nocturia, increased mental functioning such as memory, mood, and concentration. BMI is 33.9. Weight management is advised. Clinical data suggests that weight loss of 10% can reduce the severity of respiratory events and snoring and improve AHI by as much as 25%. (2) Restless legs syndrome (RLS): Code(s): G25.81 - Restless legs syndrome Status: Acute Assessment and Plan: The patient meets criteria for restless legs syndrome. His sleep history indicates that he frequently has uncomfortable feelings in his legs at night. He had significant kicking during this study, his periodic limb movement index on the baseline was 87.2 and with the CPAP, his periodic limb movement index was 108.6 however he did not have significant arousals. Ferritin level is indicated to exclude iron deficiency anemia as a contributing factor. Ferritin should be 75 ng/mL or greater. If ferritin is below this, iron supplementation should be given to achieve ferritin of 75 ng/mL. There are nonpharmacologic methods to treat limb movements including daily exercise, stretching calf muscles before bed, avoiding excessive amounts of caffeine and alcohol, vitamin B supple mentation, magnesium lotion massaged into legs before bed, and use of a weighted blanket. Pharmacologic therapy is very effective for restless legs syndrome and limb movements during sleep and may include [id number] voltage-gated calcium channel ligands such as gabapentin which is preferable to dopaminergic agents which can have augmentation. Data The data obtained during this sleep study is adequate for interpretation. Certification This sleep study has been reviewed by a board certified sleep medicine physician.
[2025-02-18 09:57] VITALS: BMI 33.9
== END 2025-01-23 06:52 | disposition home or self-care (01) ==
LOC: CHSCSM 19:56
PROVIDERS: PCP Family Medicine; Visit Provider Family Medicine
DX: G47.33 Obstructive sleep apnea (adult) (pediatric) (principal); G25.81 Restless legs syndrome
CPT/HCPCS: 95811